=== PATIENT | female | born 1985 | race Caucasian/White ===

== ENCOUNTER → 2023-05-29 15:09 | Outpatient (REF) | payer BC, SELFPAY | LOC: DHCBS MAIN 15:09 | PROVIDERS: ATTENDING PHYSICIAN Internal Medicine Cardiovascular Disease; FAMILY PHYSICIAN Family Medicine | DX: I37.0 Nonrheumatic pulmonary valve stenosis (principal) | CPT/HCPCS: 93306 ==

== ENCOUNTER → 2024-07-11 10:21 | Outpatient (REF) | payer BC, SELFPAY | LOC: WDC 10:21 | PROVIDERS: ATTENDING PHYSICIAN Physician Assistant Medical | DX: N64.4 Mastodynia (principal); N63.10 Unspecified lump in the right breast, unspecified quadrant; N63.20 Unspecified lump in the left breast, unspecified quadrant | CPT/HCPCS: 76642; 77062; 77066 ==